=== PATIENT | female | born 1965 | race Caucasian/White ===

== ENCOUNTER 2019-09-21 20:31 | Emergency (ER) | payer OTHER ==
[~2019-09-21] VITALS: Ht 152.4 cm; Wt 46.7 kg
[2019-09-21] MEDS ORDERED: SYNTHROID50 MCG (20:39)
== END 2019-09-21 21:12 | disposition home or self-care (01) ==
LOC: ER 20:31
DX: S61.221A Laceration with foreign body of left index finger without damage to nail, initial encounter (principal); W26.0XXA Contact with knife, initial encounter; Y93.89 Activity, other specified; Y92.090 Kitchen in other non-institutional residence as the place of occurrence of the external cause; Y99.8 Other external cause status